=== PATIENT | male | born 1980 | race Caucasian/White ===

== ENCOUNTER 2017-05-02 12:09 | Emergency (ER) | payer MEDICAID ==
[~2017-05-02] VITALS: Ht 170.2 cm; Wt 89.0 kg
[2017-05-02 12:27] VITALS: Ht 170.2 cm; Wt 89.0 kg
[2017-05-02] MEDS ORDERED: FAMOTIDINE 20 MG TAB PO ONE (13:00)
[2017-05-02] MEDS ORDERED: DIPHENHYDRAMINE 50 MG CAP PO ONE (13:00)
--- NOTE | 2017-05-02 13:03 | ERA ---
ER Documentation Chief Complaint Date/Time DATE: 05/02/17 TIME: 13:00 Chief Complaint rash and left eye swelling today after taking omeprazole 2 hrs ago, no sob HPI 36-year-old male presenting with a chief complaints of rash and facial swelling 4 hours. Patient states that the rash over the body as pruritic. Has not had similar symptoms in the past. States that he started taking omeprazole 2 days ago but otherwise no known environmental triggers. Denies identifiable fever, cough, dyspnea, dysphagia, drooling or change in voice. Medical history and nursing notes have been reviewed and are consistent with patients history. Vaccination status up-to-date. ROS All systems reviewed and are negative except as per history of present illness. Medications Home Meds Active Scripts Diphenhydramine Hcl* (Benadryl*) 50 Mg Cap, 50 MG PO Q6H Y for ITCHING/RASH, # 30 CAP Prov:SAVANNAH VOGEL PA-C 05/02/17 Loratadine* (Claritin*) 10 Mg Capsule, 10 MG PO DAILY for 14 Days, CAP Prov:SAVANNAH VOGEL PA-C 05/02/17 Allergies Allergies: Coded Allergies: No Known Allergy (Unverified , 05/02/17) PMhx/Soc Medical and Surgical Hx: pt denies Medical Hx, pt denies Surgical Hx Hx Alcohol Use: No Hx Substance Use: No Hx Tobacco Use: No Smoking Status: Never smoker Physical Exam Vitals Vital Signs Date Time Temp Pulse Resp B/P Pulse Ox O2 Delivery O2 Flow Rate FiO2 05/02/17 12:27 97.8 112 18 91/51 96 Physical Exam Const: Healthy-appearing. Well-nourished. Well-developed. No acute distress. Skin: Ill-defined pink wheals diffusely on the trunk and no specific distribution. Mild to moderate left facial swelling. No petechiae, ulcer, induration, or jaundice. Good turgor. Pulm: Good air movement. No rhonchi, wheezes or crackles in all lobes bilaterally auscultated. No abnormal tympani or dullness on percussion in all lobes bilaterally. Equal and appropriate lung expansion. No abnormal tactile fremitus palpated. No retractions, stridor, tripoding or drooling. Oral: No oral edema or lesions visualized. Mucous membranes moist and pink. Neck: No cervical lymphadenopathy, masses or goiter palpated. Trachea midline. Supple ~ No meningismus. Head: Normocephalic, Atraumatic. Eyes: Non-injected; No scleral erythema, discharge or foreign body. EOMI and DELIA bilaterally. Ears: Normal External Ears, EACs clear, TM normal bilaterally without erythema. Nose: Normal nose without discharge, septal deviation, or sinus tenderness. Cardio: Regular rate and rhythm; No murmurs, gallops or rubs auscultated. No JVD grossly observed. Radial and posterior tibial pulses 2+ bilaterally. No cyanosis. Capillary refill less than 2 seconds. Abd: Soft, non tender, non distended. No guarding, masses. Normal bowel sounds. No McBurney's point tenderness. MS: Normal motor strength, normal tone with gross examination. Back: No midline, flank or CVA tenderness. Ext: No cyanosis, edema or palpable cord. Normal movement of all extremities grossly observed. Neur: Awake, alert and oriented x3. Neurovascularly intact bilaterally. Psych: Normal Mood and Affect. Results 24 hrs Current Medications Medications (Trade) Dose Ordered Sig/Neelam Route PRN Reason Start Time Stop Time Status Last Admin Dose Admin Diphenhydramine HCl (Benadryl) 50 mg ONCE ONCE PO 05/02/17 13:00 05/02/17 13:01 DC 05/02/17 13:37 Famotidine (Pepcid) 20 mg ONCE ONCE PO 05/02/17 13:00 05/02/17 13:01 DC 05/02/17 13:37 Procedures/MDM Patient is being worked up and evaluated for acute rash as described in the history and physical exam. Patient was given 50 mg Benadryl p.o. and 20 mg Pepcid p.o. in the ED. Reevaluation revealed improvement of symptoms. The most likely diagnosis is acute allergic reaction/urticaria due to omeprazole versus unknown cause. I have instructed the patient to discontinue omeprazole and follow-up with PCP for alternative gastritis treatment. The treatment plan will thus include Benadryl and Claritin outpatient. At this time, I have little suspicion for vasculitis, erythema multiforme, contact dermatitis. I no longer have suspicion for endangerment of the airway. I have spoke with the patient regarding their condition and future management. They have verbally responded that they understand their status and treatment plan. The patients vitals are stable, and their current condition is appropriate for discharge. The patient will be given discharge instructions with return precautions. Departure Diagnosis: Primary Impression: Allergic reaction Qualified Code: T78.40XA - Allergic reaction, initial encounter Condition: Stable Additional Instructions: Follow up with your PCP within the next 1-3 days for a more thorough evaluation and a possible referral to a specialist. Return the the emergency department immediately if symptoms worsen or change. If you have any questions regarding medications, ask your pharmacist or us before you leave. If any adverse reactions occur while taking your medications, discontinue the treatment and return to the emergency department immediately. Take your medications as directed, and complete the entire course of treatment. SAVANNAH VOGEL PA-C May 02, 2017 13:03
[2017-05-02] MEDS ORDERED: BEN50 PO (14:03)
[2017-05-02] MEDS ORDERED: LORA10CA PO (14:03)
== END 2017-05-02 14:10 | disposition home or self-care (01) ==
LOC: FTE 12:09
DX: L50.0 Allergic urticaria (principal); T47.1X5A Adverse effect of other antacids and anti-gastric-secretion drugs, initial encounter
CPT/HCPCS: Z7502; Z7610; 99283